=== PATIENT | male | born 1950 | race Hispanic/Latino ===

== ENCOUNTER → 2022-01-13 | Outpatient (CLI) | payer MEDICARE | LOC: NM 09:21 | PROVIDERS: ATTEND Urology | DX: C61 Malignant neoplasm of prostate (principal) | CPT/HCPCS: 78306; A9503; A9570 ==

== ENCOUNTER → 2022-02-04 | Outpatient (CLI) | payer MEDICARE ==
[~2022-02-04] MED LIST: IOPAMIDOL 370 MG/ML 100 ML INFUS..BTL INJ ONE
[2022-02-04 14:57] LABS: CREATININE, SERUM 0.76 mg/dL (0.72-1.25)
== END ==
LOC: CT 13:30
PROVIDERS: ATTEND Urology
DX: C61 Malignant neoplasm of prostate (principal)
CPT/HCPCS: 36415; 74177; 82565; 84520; Q9967

== ENCOUNTER 2022-03-26 09:15 | Inpatient (IN) | payer MEDICARE ==
[2022-03-24 13:17] LABS: BASOPHILS % 0.4 % (0.0-1.0); EOSINOPHILS # (AUTO) 0.1 (0.0-0.4); HEMATOCRIT 44.1 % (38.2-49.6); HEMOGLOBIN 14.1 g/dL (14.0-18.0); LYMPHOCYTES # (AUTO) 1.5 (1.0-3.2); LYMPHOCYTES % 19.1 % (18.0-39.1); MEAN CORPUSCULAR HEMOGLOBIN 29.7 pg (28-32); MEAN CORPUSCULAR VOLUME 92.8 fL (81-99); MONOCYTES # (AUTO) 0.5 (0.2-0.8); MONOCYTES % 6.5 % (4.4-11.3); NEUTROPHILS # (AUTO) 5.7 (2.1-6.9); NEUTROPHILS % 72.9 % (38.7-80.0); PLATELET COUNT 278 x10e3/uL (140-360); RED BLOOD COUNT 4.75 x10e6/uL (4.3-5.7); RED CELL DISTRIBUTION WIDTH 12.9 % (11.7-14.4)
[~2022-03-26] VITALS: Ht 167.6 cm; Wt 80.3 kg
[~2022-03-26 09:15] MED LIST changes: +CALCIUM ZINC PO; +COQ1050 MG PO; -IOPAMIDOL 370 MG/ML 100 ML INFUS..BTL INJ ONE; +NAPROXEN250 MG PO; +SELEGILINE HCL5 M1 PO; +SINEMET 10-1001 EACH PO; +SINEMET 25-1001 EACH PO; +VITAMIN B-121000 MCG PO; +VITAMIN D310 MCG PO
[2022-03-26] MEDS ORDERED: IOPAMIDOL 610MG/1ML 300 MG/ML VIAL IV ONE (10:15)
[2022-03-26] MEDS ORDERED: MUPIROCIN 2% OINT 22 GM TUBE ONE (10:15)
[2022-03-26] MEDS ORDERED: LIDOCAINE HCL 1% LOCAL INJ 20 ML VIAL ONE (10:15)
[2022-03-26] MEDS ORDERED: FENTANYL CITRATE/PF 100MCG/2 ML INJ ONE (13:16)
[2022-03-26] MEDS ORDERED: ONDANSETRON HCL INJ 2MG/ML 2ML 2 MG/ML VIAL ONE ×2 (13:25→14:06)
[2022-03-26] MEDS ORDERED: DIPHENHYDRAMINE HCL INJ 50 MG/ML VIAL IM PRN (13:30)
[2022-03-26] MEDS ORDERED: HYDROMORPHONE 1MG/1ML INJ IV PRN (13:30)
[2022-03-26] MEDS ORDERED: ONDANSETRON HCL INJ 2MG/ML 2ML 2 MG/ML VIAL IV PRN ×2 (13:30→18:00)
[2022-03-26 14:02] LABS: BASOPHILS % 0.2 % (0.0-1.0); HEMATOCRIT 46.3 % (38.2-49.6); HEMOGLOBIN 14.6 g/dL (14.0-18.0); LYMPHOCYTES # (AUTO) 0.7 (1.0-3.2); LYMPHOCYTES % 6.8 % (18.0-39.1); MEAN CORPUSCULAR HEMOGLOBIN 29.5 pg (28-32); MEAN CORPUSCULAR HGB CONC 31.5 g/dL (31-35); MEAN CORPUSCULAR VOLUME 93.5 fL (81-99); MONOCYTES # (AUTO) 0.1 (0.2-0.8); MONOCYTES % 1.3 % (4.4-11.3); NEUTROPHILS # (AUTO) 9.5 (2.1-6.9); NEUTROPHILS % 91.4 % (38.7-80.0); PLATELET COUNT 266 x10e3/uL (140-360); RED BLOOD COUNT 4.95 x10e6/uL (4.3-5.7); RED CELL DISTRIBUTION WIDTH 12.9 % (11.7-14.4)
[2022-03-26] MEDS ORDERED: PROPOFOL IV EMULSION 10 MG/ML 20 ML VIAL ONE (14:06)
[2022-03-26] MEDS ORDERED: SEVOFLURANE INHAL SOLN 250 ML PEN BTL ONE (14:06)
[2022-03-26] MEDS ORDERED: EPHEDRINE SULFATE INJ 50 MG/ML VIAL ONE (14:06)
[2022-03-26] MEDS ORDERED: LIDOCAINE HCL 2% LOCAL INJ 5 ML SDV VIAL INJ ONE (14:06)
[2022-03-26] MEDS ORDERED: POVIDONE IODINE 0.05% 0.05 % ML PO ONE (14:06)
[2022-03-26] MEDS ORDERED: DEXAMETHASONE SOD PHOS INJ 4 MG/ML SDV ONE (14:06)
[2022-03-26] MEDS ORDERED: ROCURONIUM BROMIDE 10 MG/ML 5ML VIAL IV ONE (14:06)
[2022-03-26] MEDS ORDERED: KETOROLAC TROMETHAMINE 30 MG/ML VIAL ONE (14:06)
[2022-03-26 14:19] LABS: ANION GAP 14.2 mmol/L (8-16); CALCIUM 8.2 mg/dL (8.4-10.2); CREATININE, SERUM 0.8 mg/dL (0.72-1.25); POTASSIUM 4.2 mmol/L (3.5-5.1)
[2022-03-26 15:26] VITALS: BP 122/81
[2022-03-26 15:33] VITALS: BP 122/81
[2022-03-26] MEDS: D5.45%NS/KCL 20MEQ 1,000 ML IV SCH ×2 (17:01→21:40)
[2022-03-26] MEDS: DOCUSATE SODIUM 100 MG CAP PO SCH (17:01)
[2022-03-26] MEDS ORDERED: HYDROCORTISONE 2.5% PR CRM 1 OZ TUBE PR PRN (18:00)
[2022-03-26] MEDS ORDERED: MAGNESIUM HYDROXIDE 30 ML UDC PO PRN (18:00)
[2022-03-26 20:00] VITALS: BP 107/75
[2022-03-26 20:19] VITALS: BP 107/75
[2022-03-26] MEDS: CARBIDOPA/LEVODOPA 10/100 TAB PO SCH (21:32)
[2022-03-26] MEDS: CARBIDOPA/LEVODOPA 25/100 TAB PO SCH (21:33)
[2022-03-27] VITALS (10 sets, daily range): BP systolic 100–131; BP diastolic 64–79
[2022-03-27 04:51] LABS: BASOPHILS % 0.3 % (0.0-1.0); EOSINOPHILS % 0.3 % (0.0-6.0); HEMATOCRIT 39.6 % (38.2-49.6); HEMOGLOBIN 12.6 g/dL (14.0-18.0); LYMPHOCYTES # (AUTO) 1.8 (1.0-3.2); LYMPHOCYTES % 15.9 % (18.0-39.1); MEAN CORPUSCULAR HGB CONC 31.8 g/dL (31-35); MEAN CORPUSCULAR VOLUME 94.3 fL (81-99); MONOCYTES % 8.5 % (4.4-11.3); NEUTROPHILS # (AUTO) 8.4 (2.1-6.9); NEUTROPHILS % 74.6 % (38.7-80.0); PLATELET COUNT 250 x10e3/uL (140-360); RED CELL DISTRIBUTION WIDTH 12.9 % (11.7-14.4)
[2022-03-27 05:11] LABS: ANION GAP 11.9 mmol/L (8-16); CALCIUM 7.8 mg/dL (8.4-10.2); CREATININE, SERUM 0.9 mg/dL (0.72-1.25); POTASSIUM 3.9 mmol/L (3.5-5.1)
[2022-03-27] MEDS ORDERED: TAMSULOSIN HCL 0.4 MG CAP PO ONE (07:15)
[2022-03-27] MEDS: DOCUSATE SODIUM 100 MG CAP PO SCH ×2 (09:00→17:00)
[2022-03-27] MEDS: CARBIDOPA/LEVODOPA 25/100 TAB PO SCH ×3 (09:29→20:40)
[2022-03-27] MEDS: CARBIDOPA/LEVODOPA 10/100 TAB PO SCH ×3 (09:29→20:40)
[2022-03-27] MEDS: D5.45%NS/KCL 20MEQ 1,000 ML IV SCH ×2 (15:04→20:50)
[2022-03-27] MEDS ORDERED: FENTANYL CITRATE/PF 100MCG/2 ML INJ ONE (15:10)
[2022-03-27] MEDS ORDERED: MIDAZOLAM HCL 2 MG/2 ML VIAL ONE (15:10)
[2022-03-27] MEDS: TAMSULOSIN HCL 0.4 MG CAP PO SCH (20:40)
[2022-03-28] VITALS (7 sets, daily range): BP systolic 100–147; BP diastolic 57–84
[2022-03-28 05:16] LABS: BASOPHILS % 0.5 % (0.0-1.0); EOSINOPHILS # (AUTO) 0.1 (0.0-0.4); EOSINOPHILS % 0.6 % (0.0-6.0); HEMATOCRIT 37.1 % (38.2-49.6); HEMOGLOBIN 11.6 g/dL (14.0-18.0); LYMPHOCYTES # (AUTO) 1.3 (1.0-3.2); LYMPHOCYTES % 15.8 % (18.0-39.1); MEAN CORPUSCULAR HEMOGLOBIN 29.6 pg (28-32); MEAN CORPUSCULAR HGB CONC 31.3 g/dL (31-35); MEAN CORPUSCULAR VOLUME 94.6 fL (81-99); MONOCYTES # (AUTO) 0.8 (0.2-0.8); MONOCYTES % 9.7 % (4.4-11.3); NEUTROPHILS # (AUTO) 5.8 (2.1-6.9); NEUTROPHILS % 73.1 % (38.7-80.0); PLATELET COUNT 236 x10e3/uL (140-360); RED BLOOD COUNT 3.92 x10e6/uL (4.3-5.7); RED CELL DISTRIBUTION WIDTH 13.2 % (11.7-14.4)
[2022-03-28 05:33] LABS: ANION GAP 12.1 mmol/L (8-16); CALCIUM 7.8 mg/dL (8.4-10.2); CREATININE, SERUM 0.81 mg/dL (0.72-1.25); POTASSIUM 4.1 mmol/L (3.5-5.1)
[2022-03-28] MEDS: CARBIDOPA/LEVODOPA 25/100 TAB PO SCH ×3 (09:00→20:43)
[2022-03-28] MEDS: DOCUSATE SODIUM 100 MG CAP PO SCH ×2 (09:00→20:47)
[2022-03-28] MEDS: CARBIDOPA/LEVODOPA 10/100 TAB PO SCH ×3 (09:00→20:44)
[2022-03-28] MEDS: D5.45%NS/KCL 20MEQ 1,000 ML IV SCH ×2 (10:21→20:47)
[2022-03-28 14:56] LABS: BASOPHILS % 0.4 % (0.0-1.0); EOSINOPHILS # (AUTO) 0.1 (0.0-0.4); EOSINOPHILS % 1.3 % (0.0-6.0); HEMATOCRIT 37.9 % (38.2-49.6); HEMOGLOBIN 11.6 g/dL (14.0-18.0); LYMPHOCYTES # (AUTO) 1.8 (1.0-3.2); LYMPHOCYTES % 20.3 % (18.0-39.1); MEAN CORPUSCULAR HEMOGLOBIN 29.4 pg (28-32); MEAN CORPUSCULAR HGB CONC 30.6 g/dL (31-35); MEAN CORPUSCULAR VOLUME 96.2 fL (81-99); MONOCYTES # (AUTO) 0.8 (0.2-0.8); MONOCYTES % 8.7 % (4.4-11.3); NEUTROPHILS # (AUTO) 6.2 (2.1-6.9); NEUTROPHILS % 69.1 % (38.7-80.0); PLATELET COUNT 248 x10e3/uL (140-360); RED BLOOD COUNT 3.94 x10e6/uL (4.3-5.7); RED CELL DISTRIBUTION WIDTH 13.2 % (11.7-14.4)
[2022-03-28] MEDS: TAMSULOSIN HCL 0.4 MG CAP PO SCH (20:47)
[2022-03-29] VITALS: BP 146/79
[2022-03-29 04:00] VITALS: BP 154/86
[2022-03-29 06:39] LABS: BASOPHILS % 0.5 % (0.0-1.0); EOSINOPHILS # (AUTO) 0.1 (0.0-0.4); EOSINOPHILS % 1.6 % (0.0-6.0); HEMATOCRIT 37.3 % (38.2-49.6); HEMOGLOBIN 11.7 g/dL (14.0-18.0); LYMPHOCYTES # (AUTO) 1.4 (1.0-3.2); LYMPHOCYTES % 16.4 % (18.0-39.1); MEAN CORPUSCULAR HEMOGLOBIN 29.5 pg (28-32); MEAN CORPUSCULAR HGB CONC 31.4 g/dL (31-35); MEAN CORPUSCULAR VOLUME 94.2 fL (81-99); MONOCYTES # (AUTO) 0.7 (0.2-0.8); MONOCYTES % 8.3 % (4.4-11.3); NEUTROPHILS % 72.8 % (38.7-80.0); PLATELET COUNT 246 x10e3/uL (140-360); RED BLOOD COUNT 3.96 x10e6/uL (4.3-5.7); RED CELL DISTRIBUTION WIDTH 12.9 % (11.7-14.4)
[2022-03-29 07:02] LABS: CALCIUM 8.2 mg/dL (8.4-10.2); CREATININE, SERUM 0.75 mg/dL (0.72-1.25)
[2022-03-29 08:15] VITALS: BP 131/74
[2022-03-29] MEDS: DOCUSATE SODIUM 100 MG CAP PO SCH ×2 (09:00→20:59)
[2022-03-29] MEDS: CARBIDOPA/LEVODOPA 25/100 TAB PO SCH ×3 (10:20→20:53)
[2022-03-29] MEDS: CARBIDOPA/LEVODOPA 10/100 TAB PO SCH ×3 (10:20→20:53)
[2022-03-29 12:03] VITALS: BP 120/75
[2022-03-29] MEDS ORDERED: ACETAMINOPHEN/CODEINE 300MG - 30MG TAB PO PRN (15:45)
[2022-03-29 15:54] VITALS: BP 154/88
[2022-03-29] MEDS: TAMSULOSIN HCL 0.4 MG CAP PO SCH (16:35)
[2022-03-29 17:28] VITALS: BP 154/88
[2022-03-30 03:30] VITALS: BP 143/86
[2022-03-30 05:18] LABS: BASOPHILS % 0.4 % (0.0-1.0); EOSINOPHILS # (AUTO) 0.2 (0.0-0.4); EOSINOPHILS % 2.8 % (0.0-6.0); HEMATOCRIT 36.5 % (38.2-49.6); HEMOGLOBIN 11.6 g/dL (14.0-18.0); LYMPHOCYTES # (AUTO) 1.4 (1.0-3.2); LYMPHOCYTES % 19.2 % (18.0-39.1); MEAN CORPUSCULAR HEMOGLOBIN 29.7 pg (28-32); MEAN CORPUSCULAR HGB CONC 31.8 g/dL (31-35); MEAN CORPUSCULAR VOLUME 93.6 fL (81-99); MONOCYTES # (AUTO) 0.8 (0.2-0.8); MONOCYTES % 10.6 % (4.4-11.3); NEUTROPHILS # (AUTO) 4.8 (2.1-6.9); NEUTROPHILS % 66.6 % (38.7-80.0); PLATELET COUNT 246 x10e3/uL (140-360); RED CELL DISTRIBUTION WIDTH 12.9 % (11.7-14.4)
[2022-03-30 05:34] LABS: ANION GAP 13.9 mmol/L (8-16); CALCIUM 7.8 mg/dL (8.4-10.2); CREATININE, SERUM 0.76 mg/dL (0.72-1.25); POTASSIUM 3.9 mmol/L (3.5-5.1)
[2022-03-30 08:18] VITALS: BP 124/71
[2022-03-30 08:19] VITALS: BP 124/71
[2022-03-30] MEDS: DOCUSATE SODIUM 100 MG CAP PO SCH (09:00)
[2022-03-30] MEDS: CARBIDOPA/LEVODOPA 10/100 TAB PO SCH (09:25)
[2022-03-30] MEDS: CARBIDOPA/LEVODOPA 25/100 TAB PO SCH (09:25)
[2022-03-30 11:39] VITALS: BP 132/81
[2022-03-30] MEDS ORDERED: TAMSULOSIN HCL 0.4 MG CAP PO SCH (17:00)
== END 2022-03-30 15:00 | disposition home or self-care (01) | DRG 711 ==
LOC: OR 09:15 → PACU V 14:03 → MED/SURG 15:08
PROVIDERS: ADMIT Internal Medicine; ATTEND Internal Medicine
PROC: 07BC0ZX Excision of Pelvis Lymphatic, Open Approach, Diagnostic (ICD-10-PCS; principal; 2022-03-26 10:31)
PROC: 0VBF0ZZ Excision of Right Spermatic Cord, Open Approach (ICD-10-PCS; 2022-03-26 10:31)
DX: C61 Malignant neoplasm of prostate (principal); C77.5 Secondary and unspecified malignant neoplasm of intrapelvic lymph nodes; N99.820 Postprocedural hemorrhage of a genitourinary system organ or structure following a genitourinary system procedure; N43.3 Hydrocele, unspecified; R31.0 Gross hematuria; Z20.822 Contact with and (suspected) exposure to COVID-19; N31.2 Flaccid neuropathic bladder, not elsewhere classified; N40.1 Benign prostatic hyperplasia with lower urinary tract symptoms; N39.498 Other specified urinary incontinence; Z88.5 Allergy status to narcotic agent; Z91.013 Allergy to seafood; Z86.73 Personal history of transient ischemic attack (TIA), and cerebral infarction without residual deficits; D64.9 Anemia, unspecified; G20 Parkinson's disease; M19.90 Unspecified osteoarthritis, unspecified site
CPT/HCPCS: 0223U; 36415; 71046; 80048; 83735; 85025; 86850; 86900; 88304; 88307; 88342; 93005; 94799; J0690; J1100; J1170; J1885; J2001; J2250; J2405; J3010